=== PATIENT | female | born 1980 | race Caucasian/White ===

== ENCOUNTER 2017-01-16 15:19 | Emergency (ER) | payer OTHER ==
[~2017-01-16] VITALS: Ht 154.9 cm; Wt 70.5 kg
[~2017-01-16 15:19] MED LIST: NAPR-260 PO; ZOF8 PO
[2017-01-16 15:39] VITALS: Ht 154.9 cm; Wt 70.5 kg
[2017-01-16 17:42] LABS: URINE BLOOD (Dip) POC Negative (NEGATIVE)
--- NOTE | 2017-01-16 17:56 | RADRPT ---
PROCEDURE: XR Chest. CLINICAL INDICATION: chest pain, sepsis TECHNIQUE: Single frontal view of the chest was obtained COMPARISON: None FINDINGS: The heart and mediastinum are within normal limits. The lungs are clear. There is no pleural effusion or pneumothorax. RPTAT: AA IMPRESSION: No acute disease. .Mustapha Jaramillo MD, MD Date Time Electronically viewed and signed by .Mustapha Jaramillo MD, on 01/16/2017 17:56 .S/
[2017-01-16] MEDS ORDERED: KETOROLAC 30 MG INJ IV STA (18:03)
[2017-01-16 18:10] LABS: ADD SCAN DIFF NO
[2017-01-16 18:14] LABS: BASOPHIL # 0.1 10^3/ul (0.0-0.1); BASOPHILS % 0.4 % (0.0-2.0); EOSINOPHILS # 0.1 10^3/ul (0.0-0.5); EOSINOPHILS % 0.4 % (0.0-7.0); HEMATOCRIT 38.3 % (37.0-47.0); LYMPHOCYTES # 2.2 10^3/ul (0.8-2.9); LYMPHOCYTES % 10.9 % (15.0-51.0); MEAN CORPUSCULAR HEMOGLOBIN 31.9 pg (29.0-33.0); MEAN CORPUSCULAR HGB CONC 33.9 g/dl (32.0-37.0); MEAN CORPUSCULAR VOLUME 94.1 fl (82.0-101.0); MEAN PLATELET VOLUME 11.5 fl (7.4-10.4); MONOCYTES % 4.8 % (0.0-11.0); NEUTROPHIL # 16.5 10^3/ul (1.6-7.5); NEUTROPHILS % 82.9 % (39.0-77.0); PLATELET COUNT 217 10^3/UL (140-415); RED BLOOD COUNT 4.07 10^6/ul (4.20-5.40); RED CELL DISTRIBUTION WIDTH 13.4 % (11.5-14.5); WHITE BLOOD COUNT 19.9 10^3/ul (4.8-10.8)
[2017-01-16 18:23] LABS: CHLORIDE 100 mmol/L (97-110); INR 1.01; PROTIME 13.3 Sec (12.2-14.2)
[2017-01-16 18:23] LABS: ADD UMIC YES; URINE BILIRUBIN (Dip) NEGATIVE (NEGATIVE); URINE BLOOD (Dip) TRACE (NEGATIVE); URINE COLOR LT. YELLOW (YELLOW); URINE GLUCOSE (Dip) NEGATIVE (NEGATIVE); URINE KETONES (Dip) NEGATIVE (NEGATIVE); URINE LEUKOCYTE ESTERASE (Dip) TRACE (NEGATIVE); URINE NITRITE (Dip) POSITIVE (NEGATIVE); URINE TOTAL PROTEIN (Dip) NEGATIVE (NEGATIVE); URINE UROBILINOGEN (Dip) 0.2 E.U./dL (0.1-1.0)
[2017-01-16 18:24] LABS: ALBUMIN 4.2 g/dl (3.3-4.9); PARTIAL THROMBOPLASTIN TIME 29.2 Sec (25.0-35.0); POTASSIUM 3.4 mmol/L (3.5-5.1); SODIUM 139 mmol/L (135-144)
[2017-01-16 18:26] LABS: D-DIMER 657.19 ng/ml (<460)
[2017-01-16 18:27] LABS: ALANINE AMINOTRANSFERASE 23 IU/L (13-69); ALBUMIN/GLOBULIN RATIO 1.07; ALKALINE PHOSPHATASE 102 IU/L (42-121); ANION GAP 17 (8-16); ASPARTATE AMINO TRANSFERASE 32 IU/L (15-46); BILIRUBIN,INDIRECT 0.4 mg/dl (0-1.1); BILIRUBIN,TOTAL 0.4 mg/dl (0.2-1.3); BLOOD UREA NITROGEN 7 mg/dl (7-20); CALCIUM 8.8 mg/dl (8.4-10.2); CARBON DIOXIDE 25 mmol/L (21-31); CREATININE 0.56 mg/dl (0.44-1.00); GLUCOSE 116 mg/dl (70-220); TOTAL PROTEIN 8.1 g/dl (6.1-8.1)
[2017-01-16] MEDS ORDERED: SODIUM CHLORIDE 0.9% 1L BAG IV* STA (18:35)
[2017-01-16] MEDS ORDERED: CEFTRIAXONE 1 GM/50 ML (PMX) 50 ML IVPB STA (18:35)
[2017-01-16 18:37] LABS: BACTERIA,URINE MANY; SQUAMOUS EPITHELIAL CELL,UR OCCASIONAL; URINE RBCS 0-2 /HPF (0)
[2017-01-16 18:43] LABS: TROPONIN-I < 0.012 ng/ml (0.00-0.12)
[2017-01-16] MEDS ORDERED: ACETAMINOPHEN 500 MG TAB PO STA (18:49)
--- NOTE | 2017-01-16 18:56 | ERD ---
ER Documentation Chief Complaint Date/Time DATE: 01/16/17 TIME: 18:42 Chief Complaint FLU-LIKE SX SINCE YESTERDAY; TYLENOL TAKEN PUBLICITY EXPERT AT 1430 HPI This is a 36-year-old female presenting to the emergency department for fever/ chills, sore throat, headache and generalized body aches 3 days. Patient had tactile fevers at home. Has been taking Tylenol. Patient has sore throat however noted difficulty swallowing or drooling. No hoarseness of voice. Denies any abdominal pain or pelvic pain. Denies dysuria or hematuria. Patient has generalized body aches. Patient has cough and states has some chest pain with coughing. No chest pressure or tightness. No shortness of breath, difficulty breathing or wheezing. ROS All systems reviewed and are negative except as per history of present illness. Medications Home Meds Active Scripts Amoxicillin* (Amoxicillin*) 500 Mg Cap, 500 MG PO TID for 10 Days, CAP Prov:MICHELLE ZAPATA MD 01/16/17 Ciprofloxacin Hcl* (Ciprofloxacin Hcl*) 500 Mg Tablet, 500 MG PO BID for 5 Days , TAB Prov:MICHELLE ZAPATA MD 01/16/17 Ibuprofen* (Motrin*) 800 Mg Tab, 800 MG PO Q6H Y for PAIN AND OR ELEVATED TEMP, #30 TAB Prov:MICHELLE ZAPATA MD 01/16/17 Ondansetron Hcl* (Zofran* ODT) 8 mg -ODT Tab.disper, 8 MG PO Q6 Y for NAUSEA AND /OR VOMITING, #10 TAB Prov:NAYELY RODRIGUEZ NP 12/08/15 Naproxen* (Naprosyn*) 500 Mg Tablet, 500 MG PO BID Y for PAIN AND/OR INFLAMMATION, #30 TAB Prov:MARITZA RICHMOND PA-C 11/25/15 Reported Medications [None] No Conflict Check 05/04/10 Allergies Allergies: Coded Allergies: No Known Drug Allergies (Verified Allergy, Unknown, 01/16/17) Uncoded Allergies: NONE (Allergy, Mild, 05/04/10) PMhx/Soc Medical and Surgical Hx: pt denies Medical Hx, pt denies Surgical Hx History of Surgery: No Anesthesia Reaction: No Hx Neurological Disorder: No Hx Respiratory Disorders: No Hx Cardiac Disorders: No Hx Psychiatric Problems: No Hx Miscellaneous Medical Probl: No Hx Alcohol Use: No Hx Substance Use: No Hx Tobacco Use: No Smoking Status: Never smoker Physical Exam Vitals Vital Signs Date Time Temp Pulse Resp B/P Pulse Ox O2 Delivery O2 Flow Rate FiO2 01/16/17 20:25 99.3 110 22 106/75 99 01/16/17 15:39 101.4 134 16 120/81 96 Physical Exam Const: No acute distress, alert Head: Atraumatic Eyes: Normal Conjunctiva ENT: Normal External Ears, Nose and Mouth. Neck: Full range of motion..~ No meningismus. Resp: Clear to auscultation bilaterally. No wheezing, rhonchi or crackles. Cardio: Regular rate and rhythm, no murmurs Abd: Soft, non tender, non distended. Normal bowel sounds Skin: No petechiae or rashes Back: No midline or flank tenderness. CVA tenderness to right side. Ext: No cyanosis, or edema Neur: Awake and alert Psych: Normal Mood and Affect Result Diagram: 01/16/17 1758 01/16/171757 Results 24 hrs Laboratory Tests Test 01/16/17 17:42 01/16/17 17:58 01/16/17 18:00 01/16/17 19:15 Bedside Urine pH (LAB) 7.0 Bedside Urine Protein (LAB) Trace Bedside Urine Glucose (UA) Negative Bedside Urine Ketones (LAB) Negative Bedside Urine Blood Negative Bedside Urine Nitrite (LAB) Positive Bedside Urine Leukocyte Esterase (L Trace White Blood Count 19.910^3/ul Red Blood Count 4.0710^6/ul Hemoglobin 13.0g/dl Hematocrit 38.3% Mean Corpuscular Volume 94.1fl Mean Corpuscular Hemoglobin 31.9pg Mean Corpuscular Hemoglobin Concent 33.9g/dl Red Cell Distribution Width 13.4% Platelet Count 99294^3/UL Mean Platelet Volume 11.5fl Neutrophils % 82.9% Lymphocytes % 10.9% Monocytes % 4.8% Eosinophils % 0.4% Basophils % 0.4% Nucleated Red Blood Cells % 0.0/100WBC Neutrophils # 16.510^3/ul Lymphocytes # 2.210^3/ul Monocytes # 1.010^3/ul Eosinophils # 0.110^3/ul Basophils # 0.110^3/ul Nucleated Red Blood Cells # 0.010^3/ul Prothrombin Time 13.3Sec Prothrombin Time Ratio 1.0 INR International Normalized Ratio 1.01 Activated Partial Thromboplast Time 29.2Sec D-Dimer 657.19ng/ml D-Dimer Comment Sodium Level 139mmol/L Potassium Level 3.4mmol/L Chloride Level 100mmol/L Carbon Dioxide Level 25mmol/L Anion Gap 17 Blood Urea Nitrogen 7mg/dl Creatinine 0.56mg/dl Glucose Level 116mg/dl Lactic Acid Level 2.9mmol/L 2.0mmol/L Calcium Level 8.8mg/dl Total Bilirubin 0.4mg/dl Direct Bilirubin 0.00mg/dl Indirect Bilirubin 0.4mg/dl Aspartate Amino Transf (AST/SGOT) 32IU/L Alanine Aminotransferase (ALT/SGPT) 23IU/L Alkaline Phosphatase 102IU/L Troponin I < 0.012ng/ml Total Protein 8.1g/dl Albumin 4.2g/dl Globulin 3.90g/dl Albumin/Globulin Ratio 1.07 Urine Color LT. YELLOW Urine Clarity SLIGHTLY CLOUDY Urine pH 6.5 Urine Specific [place] 1.015 Urine Ketones NEGATIVE Urine Nitrite POSITIVE Urine Bilirubin NEGATIVE Urine Urobilinogen 0.2 E.U./dL Urine Leukocyte Esterase TRACE Urine Microscopic RBC 0-2/HPF Urine Microscopic WBC 25-50/HPF Urine Squamous Epithelial Cells OCCASIONAL Urine Bacteria MANY Urine Hemoglobin TRACE Urine Glucose NEGATIVE% Urine Total Protein NEGATIVE Current Medications Medications (Trade) Dose Ordered Sig/Giulia Route PRN Reason Start Time Stop Time Status Last Admin Dose Admin Ketorolac Tromethamine (Toradol) 30 mg ONCE STAT IV 01/16/17 18:03 01/16/17 18:05 DC 01/16/17 18:15 Sodium Chloride 2190 ml 2,190 ml BOLUS OVER 2 HOURS STAT IV* 01/16/17 18:35 01/16/17 18:38 DC 01/16/17 18:52 Ceftriaxone Sodium (Rocephin) 50 ml @ 100 mls/hr ONCE STAT IVPB 01/16/17 18:35 01/16/17 19:04 DC 01/16/17 19:08 Amoxicillin (Amoxicillin) 500 mg ONCE ONCE PO 01/16/17 19:00 01/16/17 19:01 DC 01/16/17 19:14 Dexamethasone (Decadron) 10 mg ONCE ONCE IV 01/16/17 19:00 01/16/17 19:01 DC 01/16/17 18:56 Acetaminophen (Tylenol Tab) 1,000 mg ONCE STAT PO 01/16/17 18:49 01/16/17 18:50 DC 01/16/17 18:56 Procedures/MDM ED COURSE: The patient was stable throughout ED course. I kept the patient and/or family informed of laboratory and diagnostic imaging results throughout the ED course. Laboratory CBC white blood cell 19,9 CMP no significant electrolyte imbalance UA positive nitrate, trace leukocytosis, many bacteria Lactic acid 2.9 Troponin <0.012 PT 13.3 PTT 29.2 INR 1.01 D-dimer 657.19 Imaging Patient: TESHA OMER : 1980 Age: 36 Sex: F MR #: [id number] DOS: 01/16/17 1700 Ordering MD: NAYELY RODRIGUEZ NP Location: [facility] Room/Bed: PROCEDURE: XR Chest. CLINICAL INDICATION: chest pain, sepsis TECHNIQUE: Single frontal view of the chest was obtained COMPARISON: None FINDINGS: The heart and mediastinum are within normal limits. The lungs are clear. There is no pleural effusion or pneumothorax. RPTAT: AA IMPRESSION: No acute disease. EKG: As interpreted by Dr. Cartwright Rate/Rhythm: Sinus tachycardia with heart rate 1 14 bpm QRS, ST, T-waves: No changes consistent w/ acute ischemia Impression: No evidence of ischemia or arrhythmia MDM: 36-year-old female presents emergency department for sore throat, headache , generalized body aches, cough and fever 3 days. Temp of 101.4F and heart rate of 1 34 bpm upon arrival to ED. Patient has cough that is dry nonproductive. Denies shortness of breath or difficulty breathing. No wheezing. Patient has sore throat. No difficulty swallowing or drooling. No hoarseness of voice. Patient also complains of headache and generalized body aches . IV access obtained and patient given Toradol while in the ED. CBC shows white blood cell 19.9. UA reveals leukocytosis with positive nitrate and many bacteria. Diagnosis of UTI made at 1800. Patient was started on Rocephin and IV fluid bolus of normal saline. Lactic acid of 2.9. Strep swab positive for strep throat. Influenza swab negative. D-dimer 657.19 and this is likely from inflammatory changes due to sepsis secondary to UTI and Strep Pharyngitis. Consulted Dr. Zapata regarding this patient and we agree that patient will be admitted for higher level of care and management. Departure Diagnosis: Primary Impression: Sepsis Sepsis type: sepsis due to unspecified organism Qualified Code: A41.9 - Sepsis, due to unspecified organism Additional Impressions: UTI (urinary tract infection) Urinary tract infection type: site unspecified Hematuria presence: with hematuria Qualified Code: N39.0 - Urinary tract infection with hematuria, site unspecified Strep pharyngitis Condition: NAYELY Garcia NP Jan 16, 2017 18:53
[2017-01-16] MEDS ORDERED: AMOXICILLIN 500 MG CAP PO ONE (19:00)
[2017-01-16] MEDS ORDERED: DEXAMETHASONE 10 MG/ML 1 ML INJ IV ONE (19:00)
[2017-01-16 20:25] VITALS: BP 106/75; PULSE 110; RESP 22; TEMP 99.3
[2017-01-16] MEDS ORDERED: IBUP800T25 PO (20:27)
[2017-01-16] MEDS ORDERED: AMO500 PO (20:27)
[2017-01-16] MEDS ORDERED: CIPR500T4 PO (20:27)
--- NOTE | 2017-01-16 20:41 | QN ---
Documentation Comment I have seen and evaluated the patient along with the PA and/or REINFORCED STEEL PLACING SUPERVISOR provider. I agree with the evaluation and plan of care. Please see their documentation for full ER course and evaluation. In short: This is a 36-year-old female presents with fever, generalized malaise and sore throat. On exam: The patient has tonsillar swelling with exudates, uvula is midline, tolerating secretions, abdomen is soft and nontender, no CVA tenderness bilaterally, no peritonitis. Assessment and plan: The patient was worked up by the physician's clothing sales assistant. The patient has evidence of streptococcal pharyngitis. However she also has fever and tachycardia. Laboratory testing shows significant leukocytosis with lactic acidosis. This is likely a Sirs response in the setting of streptococcal pharyngitis. However the patient also has a urinary tract infection. However, the patient also denies any urinary tract infection symptoms. She denies any dysuria, urgency or frequency. She has no flank tenderness. She has no clinical signs or symptoms that support the diagnosis of acute pyelonephritis. She is a benign abdominal examination and does not warrant CT imaging. Because the patient had a lactic acidosis she was initiated a sepsis workup including blood cultures. Time of diagnosis around 6 PM when a urinalysis resulted. The patient was given a 30 cc/kg bolus of saline. Repeat lactic acid was checked and was improving at 2.0. The patient's vital signs have dramatically improved with only slight tachycardia, defervesced since, blood pressure remained stable. I discussed the possibility of hospitalization. I spoke to Dr. Iman PARKER. This physician was concerned that the patient may not meet criteria for inpatient hospitalization given this is likely streptococcal pharyngitis with concomitant urinary tract infection. We discussed the possibility of full fluid bolus, repeat lactic acid and reassessment. I had a further conversation with the patient and discussed the risks, benefits, alternatives. The patient prefers to go home. Given that I have a low concern for sepsis that she is extremely well-appearing in the emergency room and has very close follow-up I believe outpatient management is certainly appropriate. The patient will be initiated on amoxicillin to cover streptococcal pharyngitis. She will be started on ciprofloxacin for urinary tract infection. Culture and sensitivities have been sent. The patient should return to the emergency room for any worsening symptoms, inability to tolerate oral intake. We discussed follow up with the patient's primary care doctor within 24 to 48 hours as needed. We also discussed return to the emergency room for worsening symptoms or worsening condition. Outpatient referral: [None required] Discharge Medications: Amoxicillin, Cipro, Motrin Diagnostic impression: Urinary tract infection Streptococcal pharyngitis Sirs MICHELLE PICHARDO MD Jan 16, 2017 20:41
== END 2017-01-16 21:12 | disposition home or self-care (01) ==
LOC: FTE 15:19
DX: A41.9 Sepsis, unspecified organism (principal); N39.0 Urinary tract infection, site not specified; J02.0 Streptococcal pharyngitis; R07.9 Chest pain, unspecified
CPT/HCPCS: 36415; 71010; 80053; 81001; 83605; 84484; 85025; 85378; 85610; 85730; 87040; 87086; 87400; 87880; 93005; 96374; 96375; J0696; J1100; J1885; J7030; Z7502; Z7610; 81003

== ENCOUNTER 2018-11-14 18:25 | Emergency (ER) | payer OTHER ==
[~2018-11-14] VITALS: Ht 154.9 cm; Wt 72.8 kg
[~2018-11-14 18:25] MED LIST changes: +AMOX500C2 PO; +CIPR500T4 PO; +IBUP800T48 PO; -NAPR-260 PO; +NAPR-985 PO
[2018-11-14 19:01] VITALS: Ht 154.9 cm; Wt 72.8 kg
[2018-11-14] MEDS ORDERED: SODIUM CHLORIDE 0.9% 1L BAG IV* STA (19:27)
[2018-11-14] MEDS ORDERED: CEFEPIME 2GM/50 ML (PMX) 50 ML IVPB STA (19:27)
[2018-11-14] MEDS ORDERED: ACETAMINOPHEN 500 MG TAB PO STA (19:29)
--- NOTE | 2018-11-14 19:32 | ERD ---
ER Documentation Chief Complaint Chief Complaint FEVER HPI This is a 37-year-old female who claims that she has had a fever for 3 days now. She says she has body pain and she says she initially had pain in her suprapubic region but not anymore she states. She has no nausea vomiting diarrhea. She has a fever of 104 today. She has diffuse body pain but has no headache no photophobia no stiff neck no cough no sneezing or URI symptoms. Denies any flank pain. No rash ROS All systems reviewed and are negative except as per history of present illness. Medications Home Meds Active Scripts Nitrofurantoin Monohyd Macrocr* (Macrobid*) 100 Mg Capsr, 100 MG PO BID for 10 Days, CAP Prov:VALDEZ MARKS DO 11/14/18 Cephalexin* (Keflex*) 500 Mg Capsule, 500 MG PO QID for 10 Days, CAP Prov:VALDEZ MARKS DO 11/14/18 Amoxicillin* (Amoxicillin*) 500 Mg Cap, 500 MG PO TID for 10 Days, CAP Prov:MICHELLE PICHARDO MD 01/16/17 Ciprofloxacin Hcl* (Ciprofloxacin Hcl*) 500 Mg Tablet, 500 MG PO BID for 5 Days, TAB Prov:MICHELLE PICHARDO MD 01/16/17 Ibuprofen* (Motrin*) 800 Mg Tab, 800 MG PO Q6H PRN for PAIN AND OR ELEVATED TEMP, #30 TAB Prov:MICHELLE PICHARDO MD 01/16/17 Ondansetron Hcl* (Zofran* ODT) 8 mg -ODT Tab.disper, 8 MG PO Q6 PRN for NAUSEA AND/OR VOMITING, #10 TAB Prov:NAYELY RODRIGUEZ NP 12/08/15 Naproxen* (Naprosyn*) 500 Mg Tablet, 500 MG PO BID PRN for PAIN AND/OR INFLAMMATION, #30 TAB Prov:MARITZA RICHMOND PA-C 11/25/15 Reported Medications [None] No Conflict Check 05/04/10 Allergies Allergies: Coded Allergies: No Known Drug Allergies (Verified Allergy, Unknown, 01/16/17) PMhx/Soc History of Surgery: No Anesthesia Reaction: No Hx Neurological Disorder: No Hx Respiratory Disorders: No Hx Cardiac Disorders: No Hx Psychiatric Problems: No Hx Miscellaneous Medical Probl: No Hx Alcohol Use: No Hx Substance Use: No Hx Tobacco Use: No FmHx Family History: No coronary disease Physical Exam Vitals Vital Signs Date Temp Pulse Resp B/P (MAP) Pulse Ox O2 O2 Flow FiO2 Time Delivery Rate 11/14/18 100.0 110 14 107/69 99 Room Air 20:53 (82) 11/14/18 99.9 121 20 99 Room Air 19:46 11/14/18 104.0 19:40 11/14/18 104.3 143 22 120/66 98 19:01 (84) Physical Exam Const: Well-developed, well-nourished, nontoxic and well-appearing does not appear septic Head: Atraumatic, normocephalic Eyes: Normal Conjunctiva, PERRLA, EOMI, normal sclera, no nystagmus ENT: Normal External Ears, Nose and Mouth, moist mucus membranes. Neck: Full range of motion. No meningismus, no lymphadenopathy. Resp: Clear to auscultation bilaterally, no wheezing, rhonchi, rales Cardio: Regular rate and rhythm, no murmurs, S1 S2 present Abd: Soft, mild right lower quadrant tenderness and suprapubic tenderness, non distended. Normal bowel sounds, no guarding or rebound, no pulsitile abdominal masses or bruits Skin: No petechiae or rashes, no ecchymosis , no maculopapular rash Back: No midline or flank tenderness Ext: No cyanosis, or edema, FROM x 4, normal inspection, neurovascularly intact x 4 Neur: Awake and alert, STR 5/5 x 4, sensation intact x 4, no focal findings, cerebellum intact Psych: Normal Mood and Affect Result Diagram: 11/14/18193511/14/181935 Results 24 hrs Laboratory Tests Test 11/14/18 19:36 11/14/18 19:44 11/14/18 19:47 11/14/18 21:19 White Blood Count 7.9 10^3/ul Red Blood Count 3.86 10^6/ul Hemoglobin 12.1 g/dl Hematocrit 35.7 % Mean Corpuscular 92.5 fl Volume Mean Corpuscular 31.3 pg Hemoglobin Mean Corpuscular 33.9 g/dl Hemoglobin Concent Red Cell 12.9 % Distribution Width Platelet Count 247 10^3/UL Mean Platelet 10.3 fl Volume Immature 0.400 % Granulocytes % Neutrophils % 85.8 % Lymphocytes % 11.8 % Monocytes % 1.0 % Eosinophils % 0.5 % Basophils % 0.5 % Nucleated Red 0.0 /100WBC Blood Cells % Immature 0.030 10^3/ul Granulocytes # Neutrophils # 6.7 10^3/ul Lymphocytes # 0.9 10^3/ul Monocytes # 0.1 10^3/ul Eosinophils # 0.0 10^3/ul Basophils # 0.0 10^3/ul Nucleated Red 0.0 10^3/ul Blood Cells # Prothrombin Time 12.5 Sec Prothrombin Time 1.0 Ratio INR International 0.92 Normalized Ratio Activated 25.[address] Time Urine Color YELLOW Urine Clarity CLOUDY Urine pH 6.0 Urine Specific 1.015 [place] Urine Ketones NEGATIVE mg/dL Urine Nitrite POSITIVE mg/dL Urine Bilirubin NEGATIVE mg/dL Urine Urobilinogen NEGATIVE mg/dL Urine Leukocyte 3+ Kei/ul Esterase Urine Microscopic 19 /HPF RBC Urine Microscopic > 182 /HPF WBC Urine Squamous MANY /HPF Epithelial Cells Urine Bacteria FEW /HPF Urine Mucus FEW /HPF Urine Hemoglobin 1+ mg/dL Urine Glucose NEGATIVE mg/dL Urine Total 1+ mg/dl Protein Sodium Level 137 mmol/L Potassium Level 3.3 mmol/L Chloride Level 104 mmol/L Carbon Dioxide 23 mmol/L Level Anion Gap 10 Blood Urea 10 mg/dl Nitrogen Creatinine 0.55 mg/dl Est Glomerular > 60 mL/min Filtrat Rate mL/min Glucose Level 98 mg/dl Calcium Level 8.9 mg/dl Total Bilirubin 0.2 mg/dl Direct Bilirubin 0.00 mg/dl Indirect Bilirubin 0.2 mg/dl Aspartate Amino 28 IU/L Transf (AST/SGOT) Alanine 16 IU/L Aminotransferase ( ALT/SGPT) Alkaline 102 IU/L Phosphatase Troponin I < 0.012 ng/ml Total Protein 7.5 g/dl Albumin 4.0 g/dl Globulin 3.50 g/dl Albumin/Globulin 1.14 Ratio POC Venous Lactate 1.9 mmol/L POC Beta HCG, POSITIVE Qualitative Beta HCG, 349.1 mIU/ml Quantitative Test 11/14/18 22:03 POC Venous Lactate 1.3 mmol/L Current Medications Medications Dose Sig/Giulia Start Time Status Last (Trade) Ordered Route PRN Stop Time Admin Dose Reason Admin Sodium 2,180 ml BOLUS OVER 2 11/14/18 DC 11/14/18 Chloride HOURS STAT 19: 19:40 (NS) IV* 11/14/18 19:29 Cefepime HCl 50 ml @ ONCE STAT 11/14/18 DC 11/14/18 100 mls/hr IVPB 19:27 19:40 11/14/18 19:56 1,000 mg ONCE STAT 11/14/18 DC 11/14/18 Acetaminophen PO 19:29 19:40 (Tylenol 11/14/18 19:31 Tab) Procedures/MDM MR #: [id number] DOS: 11/14/18 2100 Ordering MD: VALDEZ MARKS DO Location: E/R Room/Bed: PROCEDURE: US OB. CLINICAL INDICATION: Vaginal bleeding in early . TECHNIQUE: Transabdominal and transvaginal views of the pelvis are available for review. COMPARISON: No prior studies are available for comparison. FINDINGS: There is no evidence of intrauterine gestational sac or other intrauterine fluid collection. The uterus is relatively large measuring 13.7 x 6.6 x 10.1 cm. Uterine leiomyomas are evident with the largest measuring up to 3.2 cm in diameter. The uterus is heterogeneous and thickened measuring up to 2.6 cm in central thickness. The right ovary measures 4.5 x 2.7 x 2.5 cm. Blood flow is evident. The left ovary is not identified. IMPRESSION: 1. No identifiable intrauterine . Ectopic cannot be excluded based on this examination. Correlation with serum beta HCG levels is recommended. 2. Mildly enlarged uterus with multiple small leiomyomata. 3. Sonographically unremarkable right ovary. 4. Nonvisualization of the left ovary RPTAT:AAJJ Physician Prasad Date Time Electronically viewed and signed by Physician Prasad on 11/14/2018 22:37 GW/ CC: VALDEZ MARKS DO [id number] Patient has had 2 lactic acids that are both normal the first is 1.9 the second is 1.3. The patient was going to get a CAT scan however she has a positive test with an hCG of 394. Patient has very cloudy urine with UTI and fever. Repeat abdominal exam shows suprapubic tenderness there is no right or left lower quadrant tenderness. She received antibiotics here will discharge with Keflex and Bactrim. I instructed her to return tomorrow for recheck and sooner if she gets worse. Patient is clinically well-appearing with stable vital signs. Patient feels much better at this time, and vital signs are normal, symptoms have improved. I did give strict instructions to return to the ED if symptoms continue or worsen, patient will otherwise follow-up with primary care physici an. Patient understood instructions and agreed to plan. Disclaimer: Inadvertent spelling and grammatical errors are likely due to EHR/dictation software use and do not reflect on the overall quality of patient care. Also, please note that the electronic time recorded on this note does not necessarily reflect the actual time of the patient encounter. Departure Diagnosis: Primary Impression: Fever Fever type: unspecified Qualified Codes: R50.9 - Fever, unspecified Additional Impressions: UTI (urinary tract infection) Urinary tract infection type: acute cystitis Hematuria presence: without hematuria Qualified Codes: N30.00 - Acute cystitis without hematuria Weeks of gestation: less than 8 weeks Qualified Codes: Z3A.01 - Less than 8 weeks gestation of Condition: Stable VALDEZ MARKS DO Nov 14, 2018 19:32
[2018-11-14] MEDS ORDERED: NITR-58 PO (23:07)
[2018-11-14] MEDS ORDERED: CEPH-443 PO (23:07)
[2018-11-14 23:43] VITALS: BP 97/71; PULSE 99; RESP 15
== END 2018-11-14 23:52 | disposition home or self-care (01) ==
LOC: E/R 18:25
DX: O99.89 Other specified diseases and conditions complicating pregnancy, childbirth and the puerperium (principal); O23.11 Infections of bladder in pregnancy, first trimester; R50.9 Fever, unspecified; R10.31 Right lower quadrant pain; Z3A.01 Less than 8 weeks gestation of pregnancy
CPT/HCPCS: 36415; 71045; 76801; 76817; 80053; 81001; 81025; 83605; 84484; 84702; 85025; 85610; 85730; 86900; 86901; 87040; 87086; 87400; 96365; J0692; J7030; Z7502; Z7610

== ENCOUNTER 2018-12-09 13:58 | Emergency (ER) | payer OTHER ==
[~2018-12-09] VITALS: Ht 165.1 cm; Wt 73.1 kg
[~2018-12-09 13:58] MED LIST changes: +CEPH-443 PO; +NITR-58 PO
[2018-12-09 14:00] VITALS: Ht 165.1 cm; Wt 73.1 kg
[2018-12-09] MEDS ORDERED: ACET500C5 PO (17:15)
--- NOTE | 2018-12-09 17:33 | ERD ---
ER Documentation Chief Complaint Chief Complaint 5 weeks vaginal bleeding also cramping HPI Patient is a 38-year-old female, G4, P3, approximate 5 weeks , who presents the ER for concerns of vaginal bleeding which started this morning. Patient reports pelvic cramping. Patient states that she noticed a small amount of blood when wiping only. Patient denies wearing any pads. 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 Patient denies any fevers, chills, nausea, vomiting, abdominal pain. Patient denies any chest pain, shortness of breath, cough or leg swelling. LMP 1st week of Oct 2018 per patient. ROS All systems reviewed and are negative except as per history of present illness. Medications Home Meds Active Scripts Cephalexin* (Keflex*) 500 Mg Capsule, 500 MG PO TID for 7 Days, CAP Prov:NEGIN STRANGE PA-C 12/09/18 Acetaminophen* (Tylophen*) 500 Mg Capsule, 1 CAP PO Q6H PRN for PAIN AND OR ELEVATED TEMP, #20 CAP Prov:NEGIN STRANGE PA-C 12/09/18 Nitrofurantoin Monohyd Macrocr* (Macrobid*) 100 Mg Capsr, 100 MG PO BID for 10 Days, CAP Prov:LEKKOS,APOSTOLOS A. DO 11/14/18 Cephalexin* (Keflex*) 500 Mg Capsule, 500 MG PO QID for 10 Days, CAP Prov:LEKKOS,APOSTOLOS A. DO 11/14/18 Amoxicillin* (Amoxicillin*) 500 Mg Cap, 500 MG PO TID for 10 Days, CAP Prov:MICHELLE PICHARDO MD 01/16/17 Ciprofloxacin Hcl* (Ciprofloxacin Hcl*) 500 Mg Tablet, 500 MG PO BID for 5 Days, TAB Prov:MICHELLE PICHARDO MD 01/16/17 Ibuprofen* (Motrin*) 800 Mg Tab, 800 MG PO Q6H PRN for PAIN AND OR ELEVATED TEMP, #30 TAB Prov:MICHELLE PICHARDO MD 01/16/17 Ondansetron Hcl* (Zofran* ODT) 8 mg -ODT Tab.disper, 8 MG PO Q6 PRN for NAUSEA AND/OR VOMITING, #10 TAB Prov:NAYELY RODRIGUEZ NP 12/08/15 Naproxen* (Naprosyn*) 500 Mg Tablet, 500 MG PO BID PRN for PAIN AND/OR INFLAMMATION, #30 TAB Prov:MARITZA RICHMOND PA-C 11/25/15 Reported Medications [None] No Conflict Check 05/04/10 Allergies Allergies: Coded Allergies: No Known Drug Allergies (Verified Allergy, Unknown, 01/16/17) PMhx/Soc Medical and Surgical Hx: pt denies Medical Hx, pt denies Surgical Hx History of Surgery: No Anesthesia Reaction: No Hx Neurological Disorder: No Hx Respiratory Disorders: No Hx Cardiac Disorders: No Hx Psychiatric Problems: No Hx Miscellaneous Medical Probl: No Hx Alcohol Use: Yes (20+ beers every day every weekend) Hx Substance Use: No Hx Tobacco Use: No Smoking Status: Never smoker FmHx Family History: No diabetes Physical Exam Vitals Vital Signs Date Temp Pulse Resp B/P (MAP) Pulse Ox O2 O2 Flow FiO2 Time Delivery Rate 12/09/18 98.9 87 18 113/63 95 Room Air 18:13 (80) 12/09/18 98.2 89 18 113/81 96 Room Air 17:35 (92) 12/09/18 99.1 106 18 114/65 93 14:00 (81) Physical Exam GENERAL: Well-developed, well-nourished female. Appears in no acute distress. Speaking in full sentences. HEAD: Normocephalic, atraumatic. EYES: Pupils are equally reactive bilaterally. EOMs grossly intact. No conjunctival erythema. ENT: Moist mucous membranes. No uvula deviation. No kissing tonsils. NECK: Supple. No meningismus. Normal range of motion of the neck. LUNG: Clear to auscultation bilaterally. No rhonchi, wheezing, rales or coarse breath sounds. HEART: Regular rate and rhythm. No murmurs, rubs or gallops. ABDOMEN: No scars, ecchymosis or rashes noted. Soft, nontender, and nondistended. Positive bowel sounds in all four quadrants. No rebound tendernes s, no guarding. (-) McBurney's point tenderness. No CVA tenderness. EXTREMITIES: Equal pulses bilaterally. No peripheral clubbing, cyanosis or edema. No unilateral leg swelling. NEUROLOGIC: Alert and oriented. Moving all four extremities without any difficulty. Normal speech. Steady gait. SKIN: Normal color. Warm and dry. No rashes or lesions. Result Diagram: 12/09/18 1507 Results 24 hrs Laboratory Tests Test 12/09/18 15:07 White Blood Count 13.2 10^3/ul Red Blood Count 4.22 10^6/ul Hemoglobin 13.0 g/dl Hematocrit 38.9 % Mean Corpuscular Volume 92.2 fl Mean Corpuscular Hemoglobin 30.8 pg Mean Corpuscular Hemoglobin Concent 33.4 g/dl Red Cell Distribution Width 12.8 % Platelet Count 238 10^3/UL Mean Platelet Volume 10.3 fl Immature Granulocytes % 0.400 % Neutrophils % 67.3 % Lymphocytes % 24.3 % Monocytes % 6.4 % Eosinophils % 1.1 % Basophils % 0.5 % Nucleated Red Blood Cells % 0.0 /100WBC Immature Granulocytes # 0.050 10^3/ul Neutrophils # 8.9 10^3/ul Lymphocytes # 3.2 10^3/ul Monocytes # 0.9 10^3/ul Eosinophils # 0.1 10^3/ul Basophils # 0.1 10^3/ul Nucleated Red Blood Cells # 0.0 10^3/ul Urine Color YELLOW Urine Clarity CLOUDY Urine pH 7.0 Urine Specific Sumner 1.020 Urine Ketones NEGATIVE mg/dL Urine Nitrite NEGATIVE mg/dL Urine Bilirubin NEGATIVE mg/dL Urine Urobilinogen NEGATIVE mg/dL Urine Leukocyte Esterase TRACE Kei/ul Urine Microscopic RBC 2 /HPF Urine Microscopic WBC 21 /HPF Urine Squamous Epithelial Cells MANY /HPF Urine Bacteria FEW /HPF Urine Mucus FEW /HPF Urine Hemoglobin 2+ mg/dL Urine Glucose NEGATIVE mg/dL Urine Total Protein NEGATIVE mg/dl Beta HCG, Quantitative 1559.1 mIU/ml Current Medications Medications Dose Sig/Giulia Start Time Status Last (Trade) Ordered Route PRN Stop Time Admin Dose Reason Admin 1,000 mg ONCE STAT 12/09/18 DC 12/09/18 Acetaminophen PO 18:01 18:07 (Tylenol 12/09/18 18:02 Tab) Procedures/MDM ED COURSE: The patient was stable throughout ED course. I kept the patient and/or family informed of laboratory and diagnostic imaging results throughout the ED course. DIAGNOSTIC IMAGING: Read by radiologist. DIAGNOSTIC IMAGING REPORT Patient: TESHA OMER : 1980 Age: 38 Sex: F MR #: [id number] DOS: 12/09/18 1454 Ordering MD: NEGIN STRANGE PA-C Location: [facility] Room/Bed: PROCEDURE: US OB. CLINICAL INDICATION: Vaginal bleeding in early . TECHNIQUE: Transabdominal and transvaginal views of the pelvis are available for review. COMPARISON: No prior studies are available for comparison. FINDINGS: A single 6 mm fluid collection is present in the uterine fundal endometrium, possibly representing an early gestational sac. There may be slight surrounding decidual reaction but this is certainly not well defined. There is no evidence of pole or well-defined yolk sac. Ultrasound estimated gestational age: 5 weeks 1 day by gestational sac diameter No ovarian or adnexal mass lesion is seen. There is no free fluid. . IMPRESSION: 1. Apparent intrauterine of unknown viability, with an estimated gestational age of 5 weeks 1 day by gestational sac size. 2. No visible adnexal abnormality on either side. RPTAT:AAJJ Physician Prasad Date Time Electronically viewed and signed by Physician Prasad on 12/09/2018 17:00 GW/ CC: NEGIN STRANGE PA-C [id number] MEDICAL DECISION MAKING: This is a 38-year-old female, G4, P3, approximate 5 weeks , presents the ER for concerns of vaginal bleeding which started this morning. Patient reports pain only when wiping. Vital signs were reviewed. Patient was afebrile. Patient was hemodynamically stable. Urine test was positive. Quantitative b-HCG was 1559. Given that Rh factor was low negative, thus Rhogam was given. UA did show 2+ hemoglobin, trace leukocyte esterase. Patient will be treated with course of Keflex for concerns of UTI. Pelvic US showed 1. Apparent intrauterine of unknown viability, with an estimated gestational age of 5 weeks 1 day by gestational sac size. 2. No visible adnexal abnormality on either side. Discussed findings with patient. Patient advised to return in 48 hours for recheck. At this time with the patient presentation is most consistent with threatened . Low suspicion for ectopic , ruptured ectopic , molar , subchorionic hematoma, incomplete , complete , missed , placental abruption, placental previa, vasa previa, uterine rupture, anembyronic . Low suspicion for PE or DVT. Patient denies chest pain, shortness of breath, hemoptysis, leg swelling or LOC. PRESCRIPTIONS: Keflex DISCHARGE: At this time, patient is stable for discharge and outpatient management. I had a conversation at length with the patient about the concerns of vaginal bleeding during the 1st trimester of . Patient and/or family understands that her vaginal bleeding can be a normal finding or a sign of miscarriage. I have instructed the patient to follow-up with her OBGYN in 1-2 days for further monitoring including a repeat b-HCG level. I have instructed the patient to promptly return to the ER at any time for any new or worsening symptoms including increased pain, nausea, vomiting, continued bleeding, weakness, syncope or fever. The patient and/or family expressed understanding of and a greement with this plan. All questions were answered. Home care instructions were provided. Disclaimer: Inadvertent spelling and grammatical errors are likely due to EHR/dictation software use and do not reflect on the overall quality of patient care. Also, please note that the electronic time recorded on this note does not necessarily reflect the actual time of the patient encounter. Departure Diagnosis: Primary Impression: Vaginal bleeding in patient at less than 20 weeks ges... Additional Impression: Rh negative status during Trimester: first trimester Qualified Codes: O26.891 - Other specified related conditions, first trimester; Z67.91 - Unspecified blood type, rh negative Condition: Fair Patient Instructions: Bleeding During Early Additional Instructions: Repeat beta-hCG and pelvic ultrasound advised in 2 days. Return here for recheck. NEGIN STRANGE PA-C Dec 09, 2018 17:33
[2018-12-09] MEDS ORDERED: CEPH-443 PO (17:34)
[2018-12-09] MEDS ORDERED: ACETAMINOPHEN 500 MG TAB PO STA (18:01)
[2018-12-09 18:13] VITALS: BP 113/63; PULSE 87; RESP 18
== END 2018-12-09 18:38 | disposition home or self-care (01) ==
LOC: FTE 13:58
DX: O20.9 Hemorrhage in early pregnancy, unspecified (principal); O26.891 Other specified pregnancy related conditions, first trimester; R10.2 Pelvic and perineal pain; Z3A.01 Less than 8 weeks gestation of pregnancy; Z67.91 Unspecified blood type, Rh negative
CPT/HCPCS: 36415; 76801; 76817; 81001; 84702; 85025; 86900; 86901; J2790; Z7502; Z7610

== ENCOUNTER 2018-12-11 21:41 | Emergency (ER) | payer SELFPAY ==
[~2018-12-11] VITALS: Wt 73.6 kg
[~2018-12-11 21:41] MED LIST changes: +ACET500C5 PO
[2018-12-11 21:48] VITALS: BP 131/84; PULSE 86; RESP 18
== END 2018-12-12 02:25 | disposition left against medical advice (07) ==
LOC: FTE 21:41
DX: Z53.21 Procedure and treatment not carried out due to patient leaving prior to being seen by health care provider (principal)

== ENCOUNTER 2019-06-23 21:00 | Emergency (ER) | payer OTHER ==
[~2019-06-23] VITALS: Ht 154.9 cm; Wt 81.7 kg
[2019-06-23 21:04] VITALS: Ht 154.9 cm; Wt 81.7 kg
[2019-06-23 22:35] VITALS: BP 102/74; PULSE 68; RESP 14
== END 2019-06-23 22:35 | disposition home or self-care (01) ==
LOC: E/R 21:00
DX: O26.892 Other specified pregnancy related conditions, second trimester (principal); R00.2 Palpitations; Z3A.18 18 weeks gestation of pregnancy
CPT/HCPCS: 71045; 80053; 84484; 85025; Z7502; 93005